=== PATIENT | female | born 1940 | race Caucasian/White ===

== ENCOUNTER 2019-05-17 12:43 | Observation (INO) ==
[2019-05-17] MEDS ORDERED: NS 1,000 ML IV ONE ×2 (13:19→16:30)
[2019-05-17] MEDS ORDERED: PHENERGAN IV ONE ×2 (13:30→15:17)
[2019-05-17] MEDS ORDERED: SODIUM CHLORIDE 0.9% INJ ONE ×2 (13:30→15:17)
[2019-05-17 13:47] LABS: BASO# 0.05 X1000 (0.0-0.2); BASO% 0.4 % (0.0-0.8); EOS# 0.03 X1000 (0.0-0.7); EOS% 0.2 % (0.0-10.0); HEMATOCRIT 43.8 % (37.0-47.0); HEMOGLOBIN 14.5 g/dL (12.0-16.0); IMM GRAN# 0.04 X1000 (0.0-0.04); IMM GRAN% 0.3 % (0.0-0.5); LYMPH# 1.19 X1000 (1.2-3.4); LYMPH% 9.5 % (20.5-51.1); MCH 28.5 PG (27-31); MCHC 33.1 g/dL (33-37); MCV 86.1 FL (81-99); MPV 11.4 FL (7.4-10.4); NEUT% 85.6 % (42.2-75.2); PLT 294 X1000 (130-400); RBC 5.09 XMIL (4.2-5.4); RDW 14.2 % (11.5-14.5); WBC 12.51 X1000 (4.8-10.8)
[2019-05-17 13:50] LABS: AGAP 15; ALB/GLOB RATIO 1.7; ALBUMIN 4.3 g/dL (3.5-5.0); ALKALINE PHOSPHATASE 55 U/L (32-104); BUN 12 mg/dL (8-22); CHLORIDE 96 mmol/L (98-107); COSMO 278; CREATININE 0.6 mg/dL (0.5-0.9); ESTIMATED GFR > 60; GLUCOSE 176 mg/dL (70-104); GOT 25 U/L (10-30); GPT 15 U/L (10-36); POTASSIUM 3.4 mmol/L (3.5-5.1); SODIUM 137 mmol/L (136-145); TCO2 26 mmol/L (25-35); TOTAL BILIRUBIN 0.32 mg/dL (0.20-1.00); TOTAL PROTEIN 6.9 g/dL (6.3-8.3)
[2019-05-17 16:28] LABS: URINE SOURCE CLEAN CATCH
[2019-05-17 16:32] LABS: BILIRUBIN URINE NEGATIVE (NEGATIVE); BLOOD URINE NEGATIVE (NEGATIVE); COLOR YELLOW; GLUCOSE URINE NEGATIVE (NEGATIVE); KETONE URINE 10 mg/dL (NEGATIVE); LEUKOCYTES URINE NEGATIVE (NEGATIVE); NITRITE URINE NEGATIVE (NEGATIVE); PH URINE 7.5; PROTEIN URINE 50 mg/dL (NEGATIVE); SP GRAVITY URINE 1.012; TURBIDITY URINE CLEAR (CLEAR); UR EPITHELIAL CELLS <10 /HPF (<10); URINE BACTERIA NEGATIVE /HPF; URINE RBC <10 /HPF (<10); URINE WBC <10 /HPF (<10); UROBILINOGEN URINE NORMAL (NORMAL)
--- NOTE | 2019-05-17 17:31 | EKG Report ---
Test Performed on : 05/17/2019 4:21:20 PM Test Reason : NAUSEA Blood Pressure : / mmHG Vent. Rate : 085 BPM Atrial Rate : 085 BPM P-R Int : 262 ms QRS Dur : 130 ms QT Int : 402 ms P-R-T Axes : 109 -54 020 degrees QTc Int : 478 ms Sinus rhythm. with 1st degree AV block. with premature atrial complexes. Right bundle branch block Left anterior fascicular block Bifascicular block Minimal voltage criteria for LVH, may be normal variant Abnormal ECG No previous ECGs available Unconfirmed Result
--- NOTE | 2019-05-17 17:31 | PROVIDER DOCUMENTATION ---
This chart was entered by Zehra Casper Scribe, acting as scribe for Howard Sandhu DO. HPI-Headache - General Chief Complaint: Headache Stated Complaint: Nausea/Headache Time Seen by Provider: 05/17/19 13:10 Source: patient Allergies/Adverse Reactions: Patient Allergies Allergy/AdvReac Type Severity Reaction Status Date / Time codeine Allergy Unknown Verified 05/17/19 13:17 Home Medications: Home Medication List Medication Instructions Recorded Confirmed Last Taken Type Alendronate [Fosamax] 1 tab PO DIRECTED 05/17/19 05/17/19 Unknown History Baclofen 1 tab PO BID PRN 05/17/19 05/17/19 Unknown History Lisinopril/Hydrochlorothiazide 1 tab PO DAILY 05/17/19 05/17/19 Unknown History [Lisinopril-Hctz 20-12.5 mg Tab] Meloxicam 1 tab PO DAILY 05/17/19 05/17/19 Unknown History Metformin E.r. [Glucophage Xr] 1 tab PO BID 05/17/19 05/17/19 Unknown History Multivitamins/Minerals [Centrum 1 tab PO DAILY 05/17/19 05/17/19 Unknown History Silver] Omeprazole 1 cap PO DAILY 05/17/19 05/17/19 Unknown History PRAVAstatin [Pravachol] 1 tab PO QHS 05/17/19 05/17/19 Unknown History Tramadol [Ultram] 1 tab PO TID PRN 05/17/19 05/17/19 Unknown History - History of Present Illness-Headache Nature of Presenting Problem: Pt is a 78 yof who presents to the ED with a cc of a headache and neck pain. Pt also reports nausea & vomiting pt states that her symptoms began last saturday and usually begans when she wakes up in the morning. Pt reports that she is scheduled to have her gallbladder removed next week. Pt also reports a loss of appetite and feeling generally "rotten." Pt denies any abd pain near her gallbladder. Pt does not present to the ED with any other complaints. Headache Location: reports: frontal Quality of Pain: reports: aching, throbbing Severity: reports: mild Onset/Duration: reports: 1 week ago Timing: reports: still present Headache Context: reports: nothing Any recent trauma/injury?: reports: none Headache severity at the maximum: mild Headache Exacerbated by:: reports: nothing Modifying Factors: improves with: nothing Associated Symptoms: reports: headache, neck/back pain, nausea, vomiting Similar Symptoms Previously?: No Recently seen or treated by another doctor?: Yes Review of Systems - Adult - REVIEW OF SYSTEMS - ADULT ROS:: ROS per family Constitutional: reports: see HPI Eyes: reports: no symptoms reported Ears, Nose, Mouth & Throat: reports: no symptoms reported Cardiovascular: reports: no symptoms reported Respiratory: reports: no symptoms reported Gastrointestinal: reports: see HPI, nausea, poor appetite, vomiting Genitourinary: reports: no symptoms reported Musculoskeletal: reports: see HPI, neck pain Integumentary: reports: no symptoms reported Neurological: reports: see HPI, headache/migraines Psychiatric: reports: no symptoms reported Endocrine: reports: no symptoms reported Hematologic/Lymphatic: reports: no symptoms reported Allergic/Immunologic: reports: no symptoms reported All Other Systems: Reviewed and Negative Past History - Adult - PAST MEDICAL HISTORY-ADULT Review of Records: reports: Old Records Reviewed, Nursing Assessment Review, Medications Reviewed, Social history reviewed & non-contributory. Major Childhood Illnesses: reports: denies history Cardiovascular: reports: denies history Respiratory: reports: denies history Gastrointestinal: reports: denies history Obstetrical/Gynecological: reports: denies history Genitourinary: reports: denies history Musculoskeletal: reports: denies history Neurological: reports: denies history Endocrine/Immune: reports: denies history Other Conditions: reports: denies history - SOCIAL HISTORY Smoking: non-smoker Substance Use: denies Living Situation: family Physical Exam- Neurological - Physical Exam-Neuro Initial Vital Signs Reviewed: Yes General Appearance: alert, no apparent distress Eye Exam: bilateral eye: normal inspection (pupils equal and reactive) HENMT: normocephalic/atraumatic, other (mouth is dry). negative: moist mucous membranes Head Injury: no evidence of injury Neck: non-tender, full range of motion, supple, normal inspection. negative: C- spine tenderness, limited range of motion, tender lateral, tender midline Respiratory: chest non-tender, lungs clear, normal breath sounds. negative: crackles, rhonchi Cardiovascular: normal peripheral pulses, regular rate, rhythm, no edema, no gallop, no JVD, no murmur Abdominal Exam: normal bowel sounds, non tender. negative: soft, tenderness Lymphatic: no adenopathy Extremity: normal range of motion, non-tender, normal inspection, no pedal edema helmet hat brim cutter Exam: normal hearing, normal speech Coordination/Gait: normal finger to nose Motor/Sensory: no motor deficit, no sensory deficit Neurologic: helmet hat brim cutter II-XII nml as tested, grossly normal, other (helmet hat brim cutter in tact) Integumentary: normal color, normal turgor Psych/Mental Status: normal mood/affect, normal thought content, normal thought process - Glascow Coma Scale Best Eye Response: (4) open spontaneously Best Verbal Response: (5) oriented Best Motor Response: (6) obeys commands Total Glascow Score: 15 (Pt responds appropriately ) Progress - PLAN OF CARE/RESULTS Progress/Plan/Lab Results: Vital Signs - 8 hr 05/17/19 12:51 05/17/19 13:02 05/17/19 13:32 Temperature 98.7 F Pulse Rate 82 81 82 Respiratory Rate 16 17 21 Blood Pressure 185/105 171/95 167/84 O2 Sat by Pulse Oximetry 93 L 95 98 05/17/19 13:42 05/17/19 14:02 05/17/19 14:09 Temperature Pulse Rate 82 80 80 Respiratory Rate 16 17 16 Blood Pressure 170/96 183/86 169/89 O2 Sat by Pulse Oximetry 97 96 96 05/17/19 14:32 05/17/19 15:02 05/17/19 15:32 Temperature Pulse Rate 82 83 86 Respiratory Rate 16 17 16 Blood Pressure 166/83 173/85 160/97 O2 Sat by Pulse Oximetry 96 96 96 Laboratory Results - last 24 hr 05/17/19 05/17/19 05/17/19 13:00 13:00 13:03 WBC 12.51 H RBC 5.09 Hgb 14.5 Hct 43.8 MCV 86.1 MCH 28.5 MCHC 33.1 RDW Std Deviation 14.2 Plt Count 294 MPV 11.4 H Immature Gran % (Auto) 0.3 Neut % (Auto) 85.6 H Lymph % (Auto) 9.5 L [place] % (Auto) 4.0 Eos % (Auto) 0.2 Baso % (Auto) 0.4 Immature Gran # (Auto) 0.04 Neut # (Auto) 10.70 H Lymph # (Auto) 1.19 L [place] # (Auto) 0.50 Eos # (Auto) 0.03 Baso # (Auto) 0.05 Sodium 137 Potassium 3.4 L Chloride 96 L Carbon Dioxide 26 Anion Gap 15 BUN 12 Creatinine 0.6 Estimated GFR/1.73 m2 > 60 BUN/Creatinine Ratio 20 Glucose 176 H POC Glucose 146 H Calculated Osmolality 278 Calcium 10.0 Total Bilirubin 0.32 AST 25 ALT 15 Alkaline Phosphatase 55 Total Protein 6.9 Albumin 4.3 Globulin 2.6 Albumin/Globulin Ratio 1.7 Urine Source Urine Color Urine Turbidity Urine pH Ur Specific [place] Urine Protein Ur Glucose (Stick) Ur Ketones (Stick) Urine Blood Urine Nitrite Urine Bilirubin Urobilinogen Dipstick Urine Leukocytes Urine WBC (Auto) Urine RBC (Auto) U Epithel Cells (Auto) Urine Bacteria (Auto) 05/17/19 16:18 WBC RBC Hgb Hct MCV MCH MCHC RDW Std Deviation Plt Count MPV Immature Gran % (Auto) Neut % (Auto) Lymph % (Auto) [place] % (Auto) Eos % (Auto) Baso % (Auto) Immature Gran # (Auto) Neut # (Auto) Lymph # (Auto) [place] # (Auto) Eos # (Auto) Baso # (Auto) Sodium Potassium Chloride Carbon Dioxide Anion Gap BUN Creatinine Estimated GFR/1.73 m2 BUN/Creatinine Ratio Glucose POC Glucose Calculated Osmolality Calcium Total Bilirubin AST ALT Alkaline Phosphatase Total Protein Albumin Globulin Albumin/Globulin Ratio Urine Source CLEAN CATCH Urine Color YELLOW Urine Turbidity CLEAR Urine pH 7.5 Ur Specific [place] 1.012 Urine Protein 50 A Ur Glucose (Stick) NEGATIVE Ur Ketones (Stick) 10 A Urine Blood NEGATIVE Urine Nitrite NEGATIVE Urine Bilirubin NEGATIVE Urobilinogen Dipstick NORMAL Urine Leukocytes NEGATIVE Urine WBC (Auto) <10 Urine RBC (Auto) <10 U Epithel Cells (Auto) <10 Urine Bacteria (Auto) NEGATIVE Orders Category Date Time Status CBC WITH ELECTRONIC DIFF [HEME] Stat Lab 05/17/19 13:00 Completed COMPREHENSIVE METABOLIC PANEL [CHEM] Stat Lab 05/17/19 13:00 Completed UA NIMS W/REFLEX CULT [URINALYSIS] Stat Lab 05/17/19 16:18 Completed 0.9% Sodium Chloride Inj [Ns] 1,000 ml Med 05/17/19 13:19 Discontinued IV 999 mls/hr 0.9% Sodium Chloride Inj [Ns] 1,000 ml Med 05/17/19 16:30 Active IV 999 mls/hr Acetaminophen [Ofirmev 1000 mg/Isotonic Soln] Med 05/17/19 16:30 Active 1,000 mg in 100 ml IV Q6H PRN Promethazine [Phenergan] Med 05/17/19 13:30 Discontinued 12.5 mg IV NOW ONE Promethazine [Phenergan] Med 05/17/19 15:17 Discontinued 12.5 mg IV NOW ONE Sodium Chloride 0.9% Med 05/17/19 13:30 Discontinued 10 ml INJ NOW ONE Sodium Chloride 0.9% Med 05/17/19 15:17 Discontinued 10 ml INJ NOW ONE EKG [EKG] Stat Ther 05/17/19 16:20 Ordered Result Diagrams: 05/17/19 13:00 05/17/19 13:00 - REASSESSMENT Reassessment #1 Time Reassessed: 14:52 Status: unchanged Reassessment #2 Time Reassessed: 16:39 Status: unchanged Reassessment Comment: Pt states that her head still hurts. - EKG 1 Time of EKG reading by physician:: 16:22 EKG Read and Signed by:: Howard Sandhu EKG Interpretation (*Must complete 3 of following elements*): Abnormal (rate 85 Left anterior fascicular block Bifascicular block Minimal voltage criteria for LVH, may be normal variant) Rate: 85 Rhythm: Sinus rhythm with 1st degree AV block with premature atrial complexes QRS: RBB - CONSULTS/PCP/HOSPITALIST Notification #1 *Consult/PCP/Hospitalist*: Dr Feng Time Discussed: 17:30 Consult Disposition: Will see in ED Departure - Departure Date of Disposition Decision: 05/17/19 Time of Disposition Decision: 17:30 DIAGNOSIS: Cholelithiasis Disposition: ADMITTED INPATIENT 09 Certified Medical Emergency: Emergent Condition: Stable Referrals and Follow-Ups: Saleem Feng MD [Primary Care Provider] - - Critical Care Note This patient required my direct & personal management of CC.: No Attestation - Physician/ [place]IN[place] Attestation Patient care was provided by Advanced Practice Provider:: No The physician spent face to face time with patient:: Yes Advanced Practice Provider documentation review:: Supervising physician onsite and consulted in the evaluation and care of this patient. The physician did have a face to face encounter with the patient. This chart was documented by the indicated scribe, (Zehra Casper, Yasmine) and accurately reflects the services I performed and decisions made by me, Howard Sandhu DO, as attested by the provider's signature.
[2019-05-17] MEDS ORDERED: ZOFRAN IV PRN (17:53)
[2019-05-17] MEDS ORDERED: ROCEPHIN 1 GM in NS 50 ML IV SCH (18:00)
--- NOTE | 2019-05-17 18:25 | HISTORY AND PHYSICAL ---
CHIEF COMPLAINT: Nausea and vomiting, and generalized weakness. PRESENT ILLNESS: This is the first recent [facility] admission for this 78-year-old white female who was treated for a urinary tract infection a few days ago in the office and presented to the emergency room today after having several episodes of nausea and vomiting. She was weak and a little bit confused. She was hydrated, but continued to have general malaise and is admitted for further evaluation and treatment. She has known gallstones and had a cholecystectomy planned for 05/[address] Hall. She has had no fever or chills. LABORATORY: Revealed hemoglobin 14.5, hematocrit 43.8, white blood count 12,500. Sodium was 137, potassium 3.4, BUN 12, creatinine 0.6, glucose 146. Liver functions normal with total bilirubin 0.32, AST 25, ALT 15, alkaline phosphatase 55. PAST MEDICAL HISTORY: No recent hospitalizations or surgery. PRESENT MEDICATIONS: Fosamax 1 weekly 70 mg, baclofen 10 mg b.i.d., lisinopril HCT 20/12.5 one daily, meloxicam 15 mg 1 daily, metformin ER 500 mg b.i.d., multivitamins once daily, Omeprazole 20 mg once daily, pravastatin 40 mg at bedtime, and tramadol 1 t.i.d. p.r.n. pain. ALLERGIES: Codeine. REVIEW OF SYSTEMS: Significant for gallstones and nausea and vomiting today. FAMILY HISTORY: Unremarkable. SOCIAL HISTORY: No smoking or alcohol usage. PHYSICAL EXAMINATION: VITAL SIGNS: Temperature 98.7 degrees. Blood pressure on arrival to the emergency room was 185/105. After a few hours it is 160/97. Heart rate 86, respirations 16, O2 saturation on room air 96%. GENERAL: Patient is a well-developed, well-nourished, mildly obese white female with general malaise. She is a little confused also. HEENT: Pupils equal, round, and reactive to light. Tympanic membranes without inflammation. Pharynx benign with no erythema or exudate. NECK: Supple with no mass or lymphadenopathy. HEART: Regular in rate and rhythm with no murmur or gallop. EKG shows 1st degree AV block with occasional premature atrial complexes, and right bundle-branch block. ABDOMEN: Soft with epigastric discomfort, but no significant right upper quadrant pain to palpation. There is no mass or organomegaly. Bowel sounds are normal. EXTREMITIES: No cyanosis, clubbing, or edema. RECTAL AND GENITALIA: Deferred. IMPRESSIONS: 1. Acute gastritis. 2. History of cholelithiasis. 3. Recent urinary tract infection. PLAN: Admit for additional hydration, correction of hypokalemia, and for further evaluation. cc: Saleem Feng MD
[2019-05-17] MEDS ORDERED: NS + KCL 20 MEQ 1,000 ML IV ONE (18:51)
[2019-05-17] MEDS ORDERED: LIORESAL PO PRN (18:51)
[2019-05-17] MEDS ORDERED: ULTRAM PO PRN (18:51)
[2019-05-17] MEDS: OFIRMEV 1000 MG/ISOTONIC SOLN 1,000 MG/100 ML BOTTLE IV PRN (19:28)
[2019-05-17] MEDS ORDERED: PRAVACHOL PO SCH (21:00)
[2019-05-18] MEDS: OFIRMEV 1000 MG/ISOTONIC SOLN 1,000 MG/100 ML BOTTLE IV PRN (06:28)
[2019-05-18] MEDS ORDERED: PRILOSEC PO SCH (07:00)
--- NOTE | 2019-05-18 07:56 | PROGRESS NOTE ---
DATE: 05/18/2019 VITAL SIGNS: Temperature 98.5 degrees, heart rate 63, respirations 16, blood pressure 154/69, O2 saturation on 2 liters nasal oxygen 93%. The patient has no nausea this morning. There is no abdominal pain. Lab is pending this morning. PLAN: Ambulate and increase diet. If she is doing well this afternoon, she will be discharged home. If she has some problems with nausea or abdominal pain, Dr. Hall will be consulted concerning gallbladder surgery. cc: Saleem Feng MD
[2019-05-18 08:15] LABS: AGAP 9; BUN 9 mg/dL (8-22); CALCIUM 9.3 mg/dL (8.8-10.2); CHLORIDE 108 mmol/L (98-107); COSMO 290; CREATININE 0.5 mg/dL (0.5-0.9); ESTIMATED GFR > 60; GLUCOSE 119 mg/dL (70-104); POTASSIUM 4.1 mmol/L (3.5-5.1); SODIUM 146 mmol/L (136-145); TCO2 29 mmol/L (25-35)
[2019-05-18] MEDS ORDERED: PRINZIDE 20/12.5MG PO SCH (09:00)
[2019-05-18] MEDS ORDERED: MOBIC PO SCH (09:00)
[2019-05-18 15:39] VITALS: BP 138/59
--- NOTE | 2019-05-18 23:12 | DISCHARGE SUMMARY ---
ADMISSION DATE: 05/17/2019 DISCHARGE DATE: 05/18/2019 FINAL DIAGNOSES: 1. Acute gastritis. 2. Cholelithiasis. 3. Generalized weakness. 4. Volume depletion. DISCHARGE MEDICATIONS: Usual medications at home. HISTORY: This is the first recent [facility] admission for this 78-year-old white female with nausea and vomiting several times before presentation to the emergency room. She felt weak and was a little confused. She was admitted for hydration and further evaluation and treatment. There is history of gallstones, but no evidence of acute infection of the gallbladder. Plans were made for gallbladder removal as an outpatient on 05/25. LABORATORY: Hemoglobin 14.5, hematocrit 43.8, white blood count 12,500. Sodium 137, potassium 3.4, BUN 12, creatinine 0.6, glucose 176. Liver functions normal. HOSPITAL COURSE: After hydration and Zofran, she slowly improved. Diet was increased this morning. She has had no nausea today and has been ambulatory. Discussion was made with [facility] who had an opening for surgery on May 20. They were okay with her being discharged and were to call her tomorrow for plans to come to the surgery center and have cholecystectomy as an outpatient. She is discharged home today on her usual medicine to be seen back in the office after her gallbladder surgery as needed. cc: Saleem Feng MD
[2019-05-23] MEDS ORDERED: FOSAMAX PO SCH (09:00)
== END 2019-05-18 17:25 | disposition home or self-care (01) ==
LOC: SUPCPDRO → ED 12:43 → EDIPHOLD 12:43 → 4N 20:28
PROVIDERS: ADMIT Family Medicine; ATTEND Family Medicine